=== PATIENT | male | born 1985 | race Two or more races ===

== ENCOUNTER 2024-06-15 13:06 | Emergency (ER) | payer OTHER ==
[~2024-06-15] VITALS: Ht 180.3 cm; Wt 81.6 kg
[2024-06-15 13:25] VITALS: BP 124/85; TEMP 98.6; O2SAT 98
[2024-06-15] MEDS ORDERED: ONDA4TAB5 PO (13:39)
== END 2024-06-15 13:53 | disposition home or self-care (01) ==
LOC: ER 13:18
DX: R11.2 Nausea with vomiting, unspecified (principal); J06.9 Acute upper respiratory infection, unspecified; F17.290 Nicotine dependence, other tobacco product, uncomplicated; Z88.0 Allergy status to penicillin